=== PATIENT | female | born 1940 | race Asian ===

== ENCOUNTER 2016-10-05 10:08 | Outpatient (CLI) | payer MEDICARE, OTHER ==
--- NOTE | 2016-10-06 16:25 | Mammography Report ---
DIGITAL SCREENING MAMMOGRAM: 10/05/2016 CLINICAL INDICATION: A 76-year-old, for screening. COMPARISON: 09/2015, 09/2014, 09/2013, 09/2012, 09/2011, 09/2010, 08/2006. TECHNIQUE: Routine CC and MLO projections were obtained of the breasts. FINDINGS: Parenchymal tissue within both breasts is heterogeneously dense, which may lower the sensi tivity of mammography; however, there are no dominant masses, suspicious microcalcifications, or seco ndary signs of malignancy. In comparison to the previous studies, there are no significant changes. ASSESSMENT: NO MAMMOGRAPHIC EVIDENCE OF MALIGNANCY. NO SIGNIFICANT INTERVAL CHANGES. RECOMMENDATION: Screening mammography is recommended annually. BIRADS category 1 - negative. STANDARD QUALIFYING STATEMENTS 1. This examination was reviewed with the aid of Computed-Aided Detection (CAD). 2. A negative or benign imaging report should not delay biopsy if clinically suspicious findings are present. Consider surgical consultation if warranted. More than 5% of cancers are not identified by i maging. 3. Dense breasts may obscure an underlying neoplasm. JOB #: [id number] EXT JOB #:[id number]
== END 2016-10-05 10:09 | disposition home or self-care (01) ==
LOC: DI.N 10:08
PROVIDERS: ATTEND Family Medicine
DX: Z12.31 Encounter for screening mammogram for malignant neoplasm of breast (principal)
CPT/HCPCS: 77067

== ENCOUNTER 2017-10-17 13:35 | Outpatient (CLI) | payer MEDICARE, OTHER ==
--- NOTE | 2017-10-18 10:43 | Mammography Report ---
Procedure Date: 10/17/2017 Accession Number: [id number] / [id number] Procedure: [facility]N - Screening Mammo Dig Bilat CPT Code: FULL RESULT: EXAM: Screening Mammo Dig Bilat DATE: 10/17/2017 2:04 PM CLINICAL HISTORY: 77-year-old female presents for screening mammogram. TECHNIQUE: Bilateral CC and MLO views were obtained. COMPARISON: 10/05/2016, 09/29/2015, 09/27/2014, 09/18/2013. FINDINGS: The breasts demonstrate heterogeneously dense fibroglandular parenchyma bilaterally. No suspicious masses, clustered microcalcifications, or regions of architectural distortion are identified. IMPRESSION: Negative examination RECOMMENDATION: Routine annual screening unless otherwise clinically indicated. BIRADS CATEGORY 1: Negative STANDARD QUALIFYING STATEMENTS: 1. This examination was reviewed with the aid of Computer-Aided Detection (CAD). 2. A negative or benign imaging report should not delay biopsy if clinically suspicious findings are present. Consider surgical consultation if warrented. More than 5% of cancers are not identified by imaging. 3. Dense breasts may obscure an underlying neoplasm.
== END 2017-10-17 13:36 | disposition home or self-care (01) ==
LOC: DI.N 13:35
PROVIDERS: ATTEND Radiology Diagnostic Radiology
DX: Z12.31 Encounter for screening mammogram for malignant neoplasm of breast (principal)
CPT/HCPCS: 77067

== ENCOUNTER 2018-05-16 08:00 | Outpatient (CLI) | payer MEDICARE, OTHER | END 2018-05-16 23:59 | disposition home or self-care (01) | LOC: LAB.WCP 08:00 | PROVIDERS: ATTEND Family Medicine | DX: J02.9 Acute pharyngitis, unspecified (principal) ==

== ENCOUNTER 2018-07-18 14:09 | Outpatient (CLI) | payer MEDICARE, OTHER ==
--- NOTE | 2018-07-18 16:04 | XRAY Report ---
Reason: [id number] Procedure Date: 07/18/2018 Accession Number: [id number] / [id number] Procedure: [facility] - Chest 2 View X-Ray CPT Code: 62244 FULL RESULT: EXAM: CHEST RADIOGRAPHY. EXAM DATE: 07/18/2018 02:26 PM. CLINICAL HISTORY: Dyspnea. COMPARISON: CHEST 2 VIEW PA/LAT 01/31/2017 2:44 PM. TECHNIQUE: 2 views. FINDINGS: Lungs/Pleura: Interval development of a moderate-sized right pleural effusion with opacification of the lower half of the right hemithorax. Increased pulmonary markings are seen centrally right lung. There is a small left pleural effusion. No pneumothorax. Mediastinum: The visualized portions of the cardiomediastinal silhouette are suggestive of interval enlargement, incompletely visualized. Other: New right IJ approach infusion port with distal tip at the superior cavoatrial junction region. IMPRESSION: Interval development of bilateral pleural effusions, at least moderate on the right and small on the left. Interval placement of a right IJ approach infusion port. [facility]
== END 2018-07-18 14:10 | disposition home or self-care (01) ==
LOC: DI.WCP 14:09
PROVIDERS: ATTEND Family Medicine
DX: J90 Pleural effusion, not elsewhere classified (principal); Z95.828 Presence of other vascular implants and grafts
CPT/HCPCS: 71046